=== PATIENT | male | born 1970 | race Caucasian/White ===

== ENCOUNTER → 2017-08-17 | Outpatient (CLI) | payer OTHER ==
[~2017-08-17] MED LIST: ALEVE220 M1 PO; ALEVE220 MG PO; HYDROCODON-ACE1 EAC5 PO; HYDROCODON-ACE1 EAC7 PO; HYDROCODONE-AP1 EA11 PO; IBUPROFEN 600600 M1 PO; MOBIC15 MG PO; NORCO 10-325 T1 EACH PO; NORCO 7.5-3251 EACH PO; TIZANIDINE4 MG/1 TA1 PO; ZANAFLEX4 M1 PO
--- NOTE | 2017-08-19 09:59 | PAINCON ---
[address] [address] PAIN MANAGEMENT CONSULTATION Name: JEAN ACOSTA Room: [facility] Wendy#: [id number] Admission: 08/17/17 Attend Phys: Jonathon Branham Discharge: Date of : 70 Report #: [id number] THIS REPORT FOR: //name// CC: Olivia Daniels DATE OF SERVICE: 08/17/2017 HISTORY OF PRESENT ILLNESS: The patient is a 46-year-old gentleman being treated for lumbar radiculopathy, neuropathic pain left lower extremity requiring complex medication management. He was last seen in pain clinic on 07/06/2017. The patient returns to pain clinic today, was seen for prolonged visit from 8:30-8:55, greater than 50% of the 25-minute visit was spent counseling the patient, reviewing therapeutic options and diagnostic studies. The patient was having ongoing left lumbar radicular pain. He has had 2 lumbar epidural injections, 10/20/2016 and again 06/08/2017. Initial injection afforded good yet transient relief of symptoms. Injection on 06/08/2017 afforded really only nominal efficacy. The patient is complaining of burning dysesthesia in the left leg, intermittent numbness in the foot if he sits too long. It did have pain in the anterior thigh and hip on the left side. DIAGNOSTIC STUDIES: I reviewed MRI of the thoracolumbar spine. Thoracic MRI obtained on 07/18/2013 was normal. Lumbar MRI obtained on 05/26/2017 showed minimal disk bulging at L3-L4 and L4-L5, similar to prior studies. No evidence of acute disk extrusion, subluxation or dislocation. CT of the abdomen and pelvis back in 2011 was fairly unremarkable. I did order EMG, which was obtained on 07/26/2017. It shows essentially no electromyographic evidence of nerve conduction changes in the left lower extremity, study being essentially all within normal limits. The patient returns to pain clinic today noting pain remains in the left hip and leg, sciatic type symptoms if he sits for a prolonged time with some paresthesia in the foot. PHYSICAL EXAMINATION: GENERAL: Shows 6 feet 2 inches, 210 pounds gentleman, BMI is 27 kilograms per meter squared. VITAL SIGNS: Blood pressure 138/81, pulse 77, respirations 16. NEUROLOGIC: Alert and oriented to person, place and time, judged to be a reasonable historian. Subjective pain score is 5 [place] [address] PAIN MANAGEMENT CONSULTATION Name: JEAN ACOSTA Steffi Room: [facility]#: [id number] Admission: 08/17/17 Attend Phys: Jonathon Branham Discharge: Date of : 70 Report #: [id number] EXTREMITIES: Rises from chair using armrest. Gait is generally tandem. Subjective pain in the left hip and leg. Passive rotation of left hip does exacerbate pain, specifically with external rotation. Abduction of the left leg i.e. trying to sit with the left leg crossed over the right knee significantly exacerbates pain. ASSESSMENT: Symptomatic lumbar radiculopathy by clinical exam and history. Possible component of left hip degenerative joint disease. Diagnostic studies essentially unremarkable at this point including MRI of the lumbar spine and EMG of the left lower extremity. RECOMMENDATIONS: After a long discussion with the patient today including discussion about a possible spinal cord stimulator as the therapeutic option, we have elected to get x-rays of the left hip. Consider left hip injection if there is any abnormality, see if we can rule out any treatable causes of his subjective pain. As far as the paresthesia in the left leg, I am left somewhat at a loss to ascribe etiology for this. We did try Lyrica 50 mg b.i.d. for 30 days with really no efficacy. The patient takes nonsteroidal anti-inflammatory medications [id number] Motrin or Aleve p.r.n. with nominal efficacy. Tizanidine causes untoward sedation, uses this occasionally at bedtime. I have taken the liberty of renewing hydrocodone 7.5/325, dispensed 60 tablets, one tablet up to b.i.d. We will follow up in 2 weeks for reevaluation. We will evaluate x-ray of the hip. Consider left hip intra-articular injection with local anesthetic and steroid. If this does not afford adequate relief, we will enter into an opiate consent to treat contract with the patient to simply manage subjective pain symptoms. Discharged in good and stable condition after a 25-minute visit spent counseling the patient, reviewing therapeutic options and diagnostic studies. <ELECTRONICALLY SIGNED> By: Elian Daniels DO 08/19/17 0959 [id number] 1153Elian Daniels DO /nt
== END ==
LOC: M.PC 02:31
DX: M54.16 Radiculopathy, lumbar region (principal); Z79.899 Other long term (current) drug therapy

== ENCOUNTER → 2017-09-14 | Outpatient (CLI) | payer OTHER ==
--- NOTE | 2017-09-19 07:21 | PAINCON ---
[address] [address] PAIN MANAGEMENT CONSULTATION Name: JEAN ACOSTA Room: [facility] Nguyen#: [id number] Admission: 09/14/17 Attend Phys: Jonathon Branham Discharge: Date of : 70 Report #: [id number] THIS REPORT FOR: //name// CC: Olivia Daniels The patient is a 47-year-old gentleman being treated for symptomatic lumbar radiculopathy, neuropathic pain, left lower extremity requiring high risk complex medication management. The patient was last seen in pain clinic for ongoing neuropathy, left lower extremity. I ordered x-ray of the left hip. Prior EMG and MRIs were fairly noncontributory. The patient returns to pain clinic today. We had a prolonged visit, greater than 30 minutes was spent with the patient today, with 50% of the time spent counseling the patient. The patient complains of ongoing numbness in the left leg. He describes a "stocking" sensation from about the mid thigh down to the foot. Does have pain in the left low back, hip and gluteus. I reviewed the EMG from Dr. Granado, which noted no dramatic findings. Again, the MRI dated 05/26/2017 notes central canal and neural foramen relatively well preserved throughout the lumbar spine. Further discussion with the patient today, we reviewed his treatment history. He had prior been seen by another health care provider at [place], he had had RFL left L2, L3, L4 and L5 with some efficacy a number of years ago. He states that this procedure was repeated in 10/2013. He notes that during the procedure, he had exquisite pain with lesioning of one of the nerves. He states "it let my leg on fire." He complained at that time, but the treating physician continued. He states that since that time, he has had this paresthesia in the leg. There may have been some trauma to the nerve root from the radiofrequency lesioning (? ). We had tried Lyrica with really no change in symptoms after 60 mg b.i.d., subsequently discontinued. PHYSICAL EXAMINATION: Shows a 47-year-old gentleman, BMI is 26.9 kilograms per meter squared (6 feet 2 inches, 209 pounds). Blood pressure 132/84, pulse 81, respirations 16. Subjective pain score is 4/10. Again, the bigger concern is paresthesia in the left leg. Fortunately, strength is fairly symmetric for both legs. Straight leg raise negative. Gait is generally tandem. Some diffuse tenderness across the low back, tenderness in the left hip, gluteus medius. No discrete trigger points [place] [address] PAIN MANAGEMENT CONSULTATION Name: JEAN ACOSTA Room: [facility] Nguyen#: [id number] Admission: 09/14/17 Attend Phys: Jonathon Branham Discharge: Date of : 70 Report #: [id number] DIAGNOSTIC STUDIES: As noted above. ASSESSMENT: Neuropathic pain, left lower extremity. No dramatic findings on EMG or MRI. Left hip x-ray is benign. Concern for paresthesia, left lower extremity may be unique presentation of a demyelinating disease, may simply be a sequelae of prior interventional therapy (radiofrequency neurolysis L2, L3, L4 and L5, with significant pain during one of the lesionings though it is unclear which nerve this was. Again, this was done by another provider). RECOMMENDATIONS: 1. Today, we did enter into an opiate consent to treat contract. I reviewed with the patient risks of these medications including habituation, tolerance and dependence. I did talk about cognitive impairment and constipation and need to safeguard medications. I have taken the liberty of writing for hydrocodone 7.5/325, 60 tablets, one tablet up to b.i.d. I have provided the patient with 2 prescriptions, 1 released today, 1 release in 30 days. We will follow up in 2 months for reevaluation. 2. I have taken the liberty of referring the patient back to Dr. Granado for neurologic consultation regarding paresthesia, left lower extremity with fairly unremarkable EMG findings. Specifically, requesting rule out any demyelinating disease. 3. The patient had prior been given a prescription for tizanidine 4 mg. He was taking this sparingly. We can renew this prescription over the phone if required. We will plan on seeing the patient back in 2 months for reevaluation. We hopefully go over diagnostic findings from Neurology. Discharged in good and stable condition after prolonged visit, greater than 50% of 25+ minute visit spent counseling the patient. <ELECTRONICALLY SIGNED> By: Elian Daniels DO 09/19/17 0721 1330 0007Elian Daniels DO /nt
== END ==
LOC: M.PC 02:51
DX: M54.16 Radiculopathy, lumbar region (principal); M79.605 Pain in left leg; Z79.899 Other long term (current) drug therapy

== ENCOUNTER → 2017-11-09 | Outpatient (CLI) | payer OTHER ==
--- NOTE | 2017-11-14 08:02 | PAINCON ---
[facility] [address] [place] [address] PAIN MANAGEMENT CONSULTATION Name: JEAN ACOSTA Room: [facility]#: [id number] Admission: 11/09/17 Attend Phys: Jonathon Branham Discharge: Date of : 70 Report #: [id number] THIS REPORT FOR: //name// CC: Olivia Daniels DATE OF SERVICE: 11/09/2017 The patient is a pleasant 47-year-old gentleman typically treated for lumbar radiculopathy, left lower extremity neuropathic pain requiring complex medication management. Last visit 09/14/2017. We continued the patient on low dose of opiate, hydrocodone 7.5/325 b.i.d. EMG and MRI had been fairly unremarkable. He continues to have paresthesia in the left leg. I referred the patient to Dr. Granado for evaluation for possible demyelinating disease process. He has an appointment to see him 12/15/2017. Primary concern here was for intermitent weakness and paresthesia in left lower extremity that subjectively impacts patients activity; he notes the left leg has paresthesia on a nondaily basis, seems to be exacerbated with sitting for a prolonged period of time. He does have some pain in left buttock and paresthesia in the lateral posterior aspect of the leg down to the foot. PHYSICAL EXAMINATION: Shows 47-year-old gentleman, BMI of 27.5 kilograms per meter squared. Blood pressure 131/90, pulse 75, respirations 16. Subjective pain score is 3-4 on a VAS. Rises from chair using armrest. Gait is tandem. Lower extremity strength is preserved at this time. Straight leg raise negative. ASSESSMENT: Symptomatic lumbar radiculopathy in a gentleman with left leg paresthesia, fairly unremarkable EMG and MRI. RECOMMENDATION: We did get a buccal drug swab today. It should be positive for hydrocodone as the sole opiate. We will ask the patient to follow through with his December appointment with Dr. Granado. I am not sure that there is any pathology here; however, a 47-year-old gentleman with ongoing weakness and paresthesia in the left leg, appears to be intermittent, I want to make sure we are not overlooking any demyelinating or other neurologic process. Once this has been ruled out, we can continue with conservative treatment. Follow up in 2 months for reevaluation. <ELECTRONICALLY SIGNED> By: Elian Daniels DO 11/14/17 0802 1528 1928Elian Daniels DO /nt
== END ==
LOC: M.PC 00:46
DX: M54.16 Radiculopathy, lumbar region (principal); R20.0 Anesthesia of skin

== ENCOUNTER → 2017-12-23 | Outpatient (CLI) | payer OTHER ==
[2017-12-23 07:58] LABS: ABSOLUTE BASOPHILS 0.1 thou/uL (0.0-0.2); ABSOLUTE EOSINOPHILS 0.6 thou/uL (0.0-0.7); ABSOLUTE MONOCYTES 0.5 thou/uL (0.0-1.2); ABSOLUTE NEUTROPHILS 3.2 thou/uL (1.6-8.1); BASOPHILS 1.3 %; EOSINOPHILS 8.2 %; HEMATOCRIT 41.7 % (42.0-52.0); HEMOGLOBIN 14.1 gm/dL (14.0-18.0); LYMPHOCYTES 39.9 %; MCH 31.6 pg (26.0-34.0); MCHC 33.8 g/dL (28.0-37.0); MCV 93.4 fL (80.0-100.0); MONOCYTES 7.1 %; NUCLEATED RBCS 0 /100WBC; PLATELET COUNT* 265 thou/uL (150-400); POLYS 43.5 %; RBC 4.46 mil/uL (4.50-6.00); RDW-CV 12.3 % (10.5-14.5); WBC 7.5 thou/uL (4.0-11.0)
[2017-12-23 08:17] LABS: ALBUMIN 4.3 g/dL (3.4-5.0); CALCIUM 9.6 mg/dL (8.5-10.1); TOTAL BILIRUBIN 0.8 mg/dL (<0.1-1.0); TOTAL PROTEIN 7.4 g/dL (6.4-8.2)
[2017-12-23 09:00] LABS: ESR (SEDRATE) 1 mm/hr (0-15)
== END ==
LOC: M.LAB 07:40
PROVIDERS: Psychiatry & Neurology Neuromuscular Medicine
DX: M54.16 Radiculopathy, lumbar region (principal); M79.605 Pain in left leg; R20.2 Paresthesia of skin

== ENCOUNTER → 2018-01-04 | Outpatient (CLI) | payer OTHER ==
--- NOTE | 2018-01-05 07:13 | PAINCON ---
[address] [address] PAIN MANAGEMENT CONSULTATION Name: JEAN ACOSTA Room: [facility] Nguyen#: [id number] Admission: 01/04/18 Attend Phys: Jonathon Branham Discharge: Date of : 70 Report #: [id number] THIS REPORT FOR: //name// CC: Olivia Daniels HISTORY OF PRESENT ILLNESS: The patient is a 47-year-old gentleman being treated for lumbar radiculopathy, left lower extremity neuropathic pain requiring complex medication management. Last random drug screen 11/19/2017 was negative for hydrocodone. The patient did note he had been out of medication for several days. It was positive for no other aberrant narcotics. The patient did ultimately follow up with Dr. Granado, Neurology, fairly thorough exam noted no dramatic neurologic findings; however, did find patient positive for KALI titer. I suggested he follow up with senior hr generalist physician regarding further evaluation and consideration for disease modifying agents for connective tissue disease, which may be affecting some of his axial back pain. The patient notes subjective pain score is 5-6 on a VAS, primarily low back, left hip and leg. Notes he had had good relief of radicular pain following prior epidural injection back in June and prior injection in October, both 2016. He states hydrocodone provide some efficacy, tizanidine is being used on not daily basis. PHYSICAL EXAMINATION: Shows 6 feet 1 inch, 202 pounds gentleman, BMI is 26.8 kilograms per meter squared. Blood pressure 114/75, pulse 60, respirations 16. Rises from chair using armrest, modestly antalgic gait favoring the left leg. Positive straight leg raise on the left with slight decreased left leg strength compared to the right. Diffuse axial back pain, no discrete trigger points noted. Reviewed of diagnostic studies including EMG, which was reasonably within normal limits, MRI of the lumbar spine which did show some diffuse disk bulging at L4-L5. We reviewed the fact that opiate medications are being used to provide analgesia adequate to support activities of daily living, not attempting to achieve a specific pain score on the 0-10 Visual Analog Scale. The current opiate medications are providing sufficient analgesia to allow the patient to participate in activities of daily living. The patient is not exhibiting any aberrant behavior suggestive of drug diversion. The patient is not having any adverse reactions to medications. The patient is not suffering from daytime somnolence or mental acuity changes. The patient is managing opiate-induced constipation with appropriate [id number]-jmt-[id number] agents and dietary considerations. The patient was counseled on concern [place] [address] PAIN MANAGEMENT CONSULTATION Name: JEAN ACOSTA Room: [facility]#: [id number] Admission: 01/04/18 Attend Phys: Jonathon Branham Discharge: Date of : 70 Report #: [id number] a motor vehicle while using opiate medications. A physical exam was performed and the patient's functional status was evaluated. All patients with back pain were advised against the bed rest greater than 4 days and were advised to return to normal activities. Pain score assessment was noted and the treatment plan was reviewed with the patient. All current medications, both prescribed and OTC were reviewed and reconciled on the electronic medical record. Tobacco screening was accomplished and smoking cessation was advised when indicated. BMI was noted and diet/exercise modification was recommended for all patients following outside normal parameters. I reviewed with the patient today their responsibilities to safeguard prescription medications, reviewed their responsibility to utilize medications only as prescribed by the physician. They are to seek and receive pain medications only from 1 physician group ( [facility]). They are to use 1 pharmacy and keep the clinic informed if they change pharmacies. Their responsibilities include making followup visits in a timely fashion and to avoid abrupt discontinuation of medication usage. Their responsibilities further include bringing their medications (bottles from the pharmacy with residual pills) to the visit for possible confirmation of pill counts and the patient understands it is their responsibility to submit to random drug screens to ensure both that the medications prescribed are present, and that no other controlled substances are present. All prescriptions provided today were generated electronically. ASSESSMENT AND RECOMMENDATIONS: 1. Symptomatic lumbar radiculopathy by clinical exam and history of chronic pain requiring complex medication management. Recommendations: Follow up with Dr. Rodgers and/or Dequan regarding Rheumatologic consult. They may consider continuing him on his moderate dose opiate, hydrocodone 7.5/325 one tablet 2-3 times a day, we have increased from 60 to 75 tablets today. This still keeps the patient well below the 0-50 mg mild dose (50-90 moderate and 90+ being problematic morphine equivalent daily dosing). I will be leaving the treatment area. The patient will need to find another treating physician to write for his hydrocodone. Hopefully, if the KALI issue can be worked up and the patient started on disease modifying agent, his subjective pain generator may be somewhat improved. While he has lumbar radicular symptoms, they do not appear to be surgical at this time. If, however, Dr. Rodgers and/or Dr. Baires are unwilling to write for hydrocodone 7.5/325 one tablet 2-3 times a day for this patient, we will see if Dr. Marin Ruiz can continue his care at [facility]. The patient was seen for moderately prolonged visit, spent reviewing therapeutic options, new diagnostic findings (positive KALI titer), complex medication [address] [place] [address] PAIN MANAGEMENT CONSULTATION Name: JEAN ACOSTA Room: [facility]#: [id number] Admission: 01/04/18 Attend Phys: Jonathon Branham Discharge: Date of : 70 Report #: [id number] management concerns. The patient was given two months of current medication. 2. Acute exacerbation of lumbar radiculopathy. PROCEDURE: Lumbar epidural injection under fluoroscopy. PROCEDURE NOTE: After both written and informed consent to include risk of spinal cord damage, increased pain, weakness and dural puncture, the patient was taken to the fluoroscopy suite, placed in the prone position. After sterile prep and drape, a skin wheal with lidocaine was raised. A 22-gauge epidural Tuohy needle was inserted in the midline at L4-L5 with good loss to resistance. Negative aspiration for cerebrospinal fluid or blood was noted. Then 1 mL of Omnipaque under biplanar fluoroscopy showed good spread within the epidural space. This was followed with 80 mg of triamcinolone plus 1 mL of 1.5% preservative-free Xylocaine, 0.5 mL Xylocaine was then injected to flush the needle; it was removed. The patient was monitored for an appropriate period of time and discharged in good and stable condition. <ELECTRONICALLY SIGNED> By: Elian Daniels DO 01/05/18 0713 1454 [id number] Hospitalcelia Daniels DO /myra
== END | disposition home or self-care (01) ==
LOC: M.PC 04:02
DX: M54.16 Radiculopathy, lumbar region (principal); G89.29 Other chronic pain; Z79.891 Long term (current) use of opiate analgesic; Z98.890 Other specified postprocedural states

== ENCOUNTER → 2018-04-06 | Outpatient (CLI) | payer OTHER ==
--- NOTE | 2018-04-14 17:38 | PAINCON ---
[address] [address] PAIN MANAGEMENT CONSULTATION Name: JEAN ACOSTA Room: [facility] KIMZara Nguyen#: [id number] Admission: 04/06/18 Attend Phys: Maribell Ruiz MD Discharge: Date of : 70 Report #: [id number] THIS REPORT FOR: //name// CC: Olivia Ruiz DATE OF SERVICE: 04/06/2018 CHIEF COMPLAINT: "Pain in my right hip." HISTORY OF PRESENT ILLNESS: The patient is a 47-year-old gentleman who has been seen in the pain clinic by Dr. Elian Daniels. This is my first visit with the patient. He is complaining of pain and discomfort in the left hip area. He has history of lumbar radiculopathy. He has been treated with epidural steroid injections. He has been using medications for complex medical management. He states that he has been having pain and discomfort, which is quite problematic involving his back and hip. It has been worse over the last 6 months. He has seen a ager operator. It was found that he does not have rheumatoid arthritis. He states that his ager operator recommend that he be evaluated with an MRI because of the chronic pain he is having in his hip. He had an x-ray of his left hip. Findings were no radiologic evidence of significant problems in the left hip. He is walking with an antalgic gait. He did get an injection in the hip area about 2 months ago. It is not sure of how much benefit he received from that injection. I did feel like that there was some improvement, but still has pain continues to be problematic. He feels that the pain is in his low back area and that there is some portion of radiating to his hip. He does have discrete areas where if he pushes on his left trochanteric area. There is soreness as well as of the left posterior iliac area pressures in these areas can be helped problematic. He finds that activities such as walking and standing can be problematic placing cold compresses in the area can be beneficial. ALLERGIES: No known drug allergies. MEDICATIONS: Ibuprofen 600 mg q.6 to 8 hours, Naprosyn, Aleve 220 mg p.r.n., tizanidine 4 mg one-half tab t.i.d. for spasms. PAST MEDICAL HISTORY: Emotional problems. PAST SURGICAL HISTORY: Right knee partial replacement in 2013, cholecystectomy and hernia repair in 2005. SOCIAL HISTORY: He works for [employer]. 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 He is working at this juncture. REVIEW OF SYSTEMS: Wears contact lenses/glasses awakens to urinate, [place] [address] PAIN MANAGEMENT CONSULTATION Name: JEAN ACOSTA Room: [facility] SLIM Nguyen#: [id number] Admission: 04/06/18 Attend Phys: Maribell Ruiz MD Discharge: Date of : 70 Report #: [id number] LABORATORY DATA: X-ray dated on 02/28/2018, reveals hip/pelvis left with findings to visualize pelvis and proximal femur appear normal without fracture, periosteal reaction or osteolytic/osteoblastic lesions. The hip appears normal without joint space narrowing, osteophyte formation or periarticular erosion. PAIN CLINIC ASSESSMENT: 1. History of osteoarthritis and rheumatoid arthritis. The patient has not been treated for osteoarthritis or rheumatoid arthritis. 2. Height 6 feet 2 inches, weight 192 pounds and BMI is 25. 3. Vital signs: Blood pressure 132/83, heart rate 71, respiratory rate 18, room air saturation 91% and temperature 97.7. 4. Pain intensity 01/15. 5. Fall risk. The patient has not fallen in the last 3 months. 6. Blood thinner. The patient is not on a blood thinning medication. 7. Hypertension. The patient is not being treated for hypertension. 8. Opioid therapy greater than 6 weeks. The patient is not on opioid therapy. 9. Risk assessment tool. 10. Functional assessment tool. 11. Recreational drug use. The patient denies use of recreational drugs. 12. Tobacco: The patient denies use of tobacco. 10. Alcohol: The patient denies use of alcohol. PHYSICAL EXAMINATION: GENERAL: The patient is a well-developed, well-nourished white male. Appears his stated age. He is alert and oriented x 3. His affect is appropriate. Speech is fluent. HEENT: Normocephalic, atraumatic. Extraocular eye muscles intact. Sclerae nonicteric. Mucous membranes are moist. NECK: Without adenopathy or JVD. HEART: Regular rate. ABDOMEN: Nontender. LUNGS: Clear to auscultation. HEART: Regular rate. S1, S2, Upper extremity muscle strength is judged to be 5/5 for the major muscle groups. Lower extremity muscle strength is judged to be 5/5 for the major muscle groups in the lower back on the right side. The patient has muscle strength of approximately 4+/5 on the left side secondary giving way because of pain and discomfort involving his left hip. The patient is without scoliosis, kyphosis or lordosis. Palpation in the area of the posterior superior iliac spine in the mid portion of the spine and in the area of the gluteus yady. Palpation in this area does reproduce pain and discomfort, which caused the patient to wince and pull away. Palpation in the area of the left greater trochanteric area anterior to the greater trochanteric area causes the patient to complain of significant about pain and discomfort in [place] [address] PAIN MANAGEMENT CONSULTATION Name: JEAN ACOSTA Room: [facility]#: [id number] Admission: 04/06/18 Attend Phys: Maribell Ruiz MD Discharge: Date of : 70 Report #: [id number] ASSESSMENT: 1. Left hip pain. 2. Emotional problems. RECOMMENDATIONS: We discussed treatment options with the patient. At this juncture, I think it could be reasonable for him to undergo an MRI of the affected side. He is having significant pain. This is significantly impacting his activities of daily living. He will undergo an MRI and returns for additional treatment. The patient elects at this juncture to undergo trigger point injections to the 2 trigger points that are quite problematic in the left side of his lower extremity. PROCEDURE NOTE: The patient was taken to the examination area. He was placed in the right lateral decubitus position. The left hip was up. This area was palpated. Chlorhexidine solution was applied to the left greater trochanteric area as well as the lower back area near the posterior superior iliac spine. Palpation of the trochanteric area reproduced the patient's discomfort. He was able to reproduce it by pointing out on numerous occasions. We then after it had been sterilely prepped injected using a 25-gauge needle into the area. The patient states that this reproduced his discomfort. A total of 10 mL of 0.25% bupivacaine and 80 mg Depo-Medrol was injected. The patient was then positioned and the posterior superiorly iliac spine area was palpated. The trigger point was noted. A 25-gauge needle was then advanced into this area. Total of 40 mg triamcinolone was injected using 8 mL of 0.25% bupivacaine. The patient tolerated the procedure well. There were no complications. He remained in the pain clinic for an appropriate amount of time. He will follow up in the future as needed. We would like to thank you for letting us participate in his care. A script for MRI of the left hip has been provided to the patient. <ELECTRONICALLY SIGNED> By: Maribell Ruiz MD 04/14/18 [id number]. Marin Ruiz MD /nt
== END | disposition home or self-care (01) ==
LOC: M.PC 04:54
DX: M25.552 Pain in left hip (principal); M54.16 Radiculopathy, lumbar region; I10 Essential (primary) hypertension; Z79.899 Other long term (current) drug therapy; Z96.651 Presence of right artificial knee joint; Z98.890 Other specified postprocedural states; Z90.49 Acquired absence of other specified parts of digestive tract; Z87.39 Personal history of other diseases of the musculoskeletal system and connective tissue; Z91.018 Allergy to other foods

== ENCOUNTER → 2018-05-19 | Outpatient (CLI) | payer OTHER | LOC: M.MRI 05-09 17:08 | DX: M25.552 Pain in left hip (principal); G80.9 Cerebral palsy, unspecified; R53.82 Chronic fatigue, unspecified; R63.4 Abnormal weight loss; Z80.8 Family history of malignant neoplasm of other organs or systems ==

== ENCOUNTER → 2018-06-08 | Outpatient (CLI) | payer OTHER | END | disposition home or self-care (01) | LOC: M.RAD 06-07 13:25 | DX: S73.192A Other sprain of left hip, initial encounter (principal); M25.552 Pain in left hip; F41.9 Anxiety disorder, unspecified; Z90.49 Acquired absence of other specified parts of digestive tract; Z98.890 Other specified postprocedural states; Z87.891 Personal history of nicotine dependence; Z79.899 Other long term (current) drug therapy; Z79.891 Long term (current) use of opiate analgesic; Z80.8 Family history of malignant neoplasm of other organs or systems; X58.XXXA Exposure to other specified factors, initial encounter; Y93.89 Activity, other specified; Y92.89 Other specified places as the place of occurrence of the external cause; Y99.8 Other external cause status ==

== ENCOUNTER → 2019-03-01 | Outpatient (CLI) | payer OTHER | END | disposition home or self-care (01) | LOC: M.RAD 08:58 | DX: M25.552 Pain in left hip (principal); Z98.890 Other specified postprocedural states; Z90.49 Acquired absence of other specified parts of digestive tract ==